=== PATIENT | female | born 1985 | race Hispanic/Latino ===

== ENCOUNTER → 2017-10-30 | Outpatient (CLI) | payer BC | END | disposition home or self-care (01) | LOC: OIH 11:35 | PROVIDERS: ATTEND Internal Medicine | DX: M54.16 Radiculopathy, lumbar region (principal); M54.14 Radiculopathy, thoracic region | CPT/HCPCS: 72070; 72100 ==

== ENCOUNTER → 2022-04-22 | Outpatient (CLI) | payer BC | END | disposition home or self-care (01) | LOC: SHCH 09:49 | PROVIDERS: ATTEND Internal Medicine Cardiovascular Disease | DX: R00.2 Palpitations (principal) | CPT/HCPCS: 93306 ==